=== PATIENT | female | born 1965 | race Caucasian/White ===

== ENCOUNTER 2017-06-11 15:56 | Emergency (ER) | payer BC, OTHER ==
[2017-06-11] MEDS: ONDANSETRON 4 MG INJ IV (16:50)
[2017-06-11] MEDS: morphine 4 MG/ML VIAL IV (16:50)
[2017-06-11 17:03] LABS: ADD MAN DIFF? NO
[2017-06-11 17:09] LABS: WHITE BLOOD COUNT 6.4 10^3/ul (4.8-10.8)
[2017-06-11 17:09] LABS: BASOPHIL # 0.1 10^3/ul (0.0-0.1); BASOPHILS % 0.9 % (0.0-2.0); EOSINOPHILS # 0.1 10^3/ul (0.0-0.5); HEMATOCRIT 39.2 % (37.0-47.0); HEMOGLOBIN 13.6 g/dl (12.0-16.0); LYMPHOCYTES # 3.1 10^3/ul (0.8-2.9); LYMPHOCYTES % 47.5 % (15.0-51.0); MEAN CORPUSCULAR HEMOGLOBIN 30.2 pg (29.0-33.0); MEAN CORPUSCULAR HGB CONC 34.7 g/dl (32.0-37.0); MEAN CORPUSCULAR VOLUME 86.9 fl (82.0-101.0); MEAN PLATELET VOLUME 10.4 fl (7.4-10.4); MONOCYTE # 0.5 10^3/ul (0.3-0.9); MONOCYTES % 8.1 % (0.0-11.0); NEUTROPHIL # 2.7 10^3/ul (1.6-7.5); NEUTROPHILS % 41.3 % (39.0-77.0); PLATELET COUNT 277 10^3/UL (140-415); RED BLOOD COUNT 4.51 10^6/ul (4.20-5.40); RED CELL DISTRIBUTION WIDTH 12.6 % (11.5-14.5)
[2017-06-11 17:21] LABS: ADD UMIC YES; UR ASCORBIC ACID NEGATIVE (NEGATIVE); UR BACTERIA FEW /HPF (NONE SEEN); UR BILIRUBIN (Dip) NEGATIVE (NEGATIVE); UR BLOOD (Dip) 2+ mg/dL (NEGATIVE); UR CLARITY CLEAR (CLEAR); UR COLOR YELLOW (YELLOW); UR GLUCOSE (Dip) NEGATIVE (NEGATIVE); UR KETONES (Dip) NEGATIVE (NEGATIVE); UR LEUKOCYTE ESTERASE (Dip) NEGATIVE Leu/ul (NEGATIVE); UR NITRITE (Dip) NEGATIVE (NEGATIVE); UR RBC 16 /HPF (0-5); UR SPECIFIC GRAVITY (Dip) 1.026 (1.003-1.030); UR SQUAMOUS EPITHELIAL CELL FEW /HPF (FEW); UR TOTAL PROTEIN (Dip) NEGATIVE (NEGATIVE); UR UROBILINOGEN (Dip) NEGATIVE (NEGATIVE); UR WBC 1 /HPF (0-5)
[2017-06-11 17:27] LABS: ALANINE AMINOTRANSFERASE 41 IU/L (13-69); ALBUMIN 4.6 g/dl (3.3-4.9); ALBUMIN/GLOBULIN RATIO 1.43; ALKALINE PHOSPHATASE 113 IU/L (42-121); ANION GAP 15 (8-16); ASPARTATE AMINO TRANSFERASE 27 IU/L (15-46); BLOOD UREA NITROGEN 17 mg/dl (7-20); CALCIUM 9.6 mg/dl (8.4-10.2); CARBON DIOXIDE 27 mmol/L (21-31); CHLORIDE 104 mmol/L (97-110); CREATININE 0.66 mg/dl (0.44-1.00); GLUCOSE 88 mg/dl (70-220); LIPASE 124 U/L (23-300); POTASSIUM 3.8 mmol/L (3.5-5.1); SODIUM 142 mmol/L (135-144); TOTAL PROTEIN 7.8 g/dl (6.1-8.1)
[2017-06-11] MEDS: SOD CHLORIDE 0.9% 100 ML (18:42)
[2017-06-11] MEDS: IOHEXOL 300MG/ML 150 ML BTL (18:43)
== END 2017-06-11 19:32 | disposition home or self-care (01) ==
LOC: E/R 15:56
DX: R10.31 Right lower quadrant pain (principal)
CPT/HCPCS: 36415; 74177; 76830; 76856; 80053; 81001; 83690; 85025; 96374; 96375; 99285-25

== ENCOUNTER 2017-08-23 06:22 | Day surgery (SDC) | payer BC ==
[2017-08-23] MEDS ORDERED: SOD CHLORIDE 0.9% 1,000 ML IV (07:00)
[2017-08-23] MEDS ORDERED: CEFAZOLIN 1 GM/50 ML (PMX) 50 ML IVPB (07:00)
[2017-08-23] MEDS ORDERED: MIDAZOLAM 1 MG/ML 2 ML INJ (08:03)
[2017-08-23] MEDS ORDERED: METOCLOPRAMIDE 10 MG INJ (08:03)
[2017-08-23] MEDS ORDERED: CEFAZOLIN 1 GM INJ (08:23)
[2017-08-23] MEDS ORDERED: FENTAnyl 50 MCG/ML VIAL (08:23)
[2017-08-23] MEDS ORDERED: ONDANSETRON 4 MG INJ (08:23)
[2017-08-23] MEDS ORDERED: ONDANSETRON 4 MG INJ IV (08:30)
[2017-08-23] MEDS ORDERED: HYDROmorphONE 1 MG/5 ML IV SYRINGE IV ×3 (08:30)
[2017-08-23] MEDS ORDERED: MEPERIDINE 25 MG INJ IV (08:30)
[2017-08-23] MEDS ORDERED: DIPHENHYDRAMINE 50 MG INJ IV (08:30)
[2017-08-23] MEDS: BUPIVACAINE 0.25%/EPI (SDV) 30 ML INJ (08:53)
[2017-08-23] MEDS ORDERED: HYDROCODONE/APAP (5/325) TAB PO (10:00)
[2017-08-23] MEDS: HYDROCODONE/APAP (5/325) TAB PO (10:50)
== END 2017-08-23 10:54 | disposition home or self-care (01) ==
LOC: SDS 06:22
DX: N60.11 Diffuse cystic mastopathy of right breast (principal); N60.31 Fibrosclerosis of right breast; D17.1 Benign lipomatous neoplasm of skin and subcutaneous tissue of trunk
CPT/HCPCS: 11406; 71045; 88307; 93005

== ENCOUNTER 2017-12-30 21:27 | Emergency (ER) | payer BC ==
[2017-12-31] MEDS ORDERED: BENZONATATE 100 MG CAP PO (01:30)
== END 2017-12-31 02:14 | disposition home or self-care (01) ==
LOC: FTE 21:27
DX: J20.9 Acute bronchitis, unspecified (principal)
CPT/HCPCS: 99283; Z7502

== ENCOUNTER 2018-06-20 05:57 | Day surgery (SDC) | payer BC ==
[2018-06-20] MEDS ORDERED: FENTAnyl 50 MCG/ML VIAL (09:37)
[2018-06-20] MEDS ORDERED: MIDAZOLAM 1 MG/ML 2 ML INJ ×2 (09:38)
== END 2018-06-20 11:42 | disposition home or self-care (01) ==
LOC: GIL 05:57
DX: Z12.11 Encounter for screening for malignant neoplasm of colon (principal); K64.8 Other hemorrhoids
CPT/HCPCS: 45380; 88305

== ENCOUNTER 2018-11-26 13:32 | Emergency (ER) | payer BC ==
[2018-11-26] MEDS: KETOROLAC 15 MG INJ IV (15:46)
[2018-11-26] MEDS: FAMOTIDINE 20 MG INJ IV (15:46)
[2018-11-26] MEDS: SOD CHLORIDE 0.9% 500 ML IV (15:46)
[2018-11-26] MEDS: ONDANSETRON 4 MG INJ IV (15:46)
[2018-11-26] MEDS: morphine 4 MG/ML VIAL IV (15:47)
== END 2018-11-26 19:26 | disposition home or self-care (01) ==
LOC: FTE 13:32
DX: R10.31 Right lower quadrant pain (principal); J45.909 Unspecified asthma, uncomplicated; Z87.891 Personal history of nicotine dependence
CPT/HCPCS: 76856; 80053; 81001; 85025; 96374; 96375; 99285-25